=== PATIENT | female | born 1930 | race Caucasian/White ===

== ENCOUNTER → 2017-01-12 | Outpatient (CLI) | payer MEDICARE, OTHER ==
[~2017-01-12] MED LIST: ALBUTEROL20 ml INH; ALL DAY ALLERGY10 M2 PO; ALLEGRA60 M1 PO; ALLERGY10 M2 PO; ALPRAZOLAM0.25 MG PO; ANASTROZOLE1 MG PO; ARIMIDEX1 MG PO; ASPIRIN EC81 M1 PO; ASPIRIN81 M2 PO; ASPIRIN81 MG PO; BETAPACE PO; CARDIZEM CD PO; CARDIZEM CD120 M1 PO; CARDIZEM PO; CARDIZEM60 M1 PO; CARDIZEM60 M2 PO; CARDIZEM60 MG PO; CIPRO PO; COLACE PO; COUMADIN PO; COUMADIN1 MG PO; COUMADIN2.5 MG PO; COUMADIN5 MG PO; COUMADIN7.5 MG PO; DILTIAZEM ER60 MG; DILTIAZEM ER60 MG PO; FENOFIBRATE54 MG PO; GLUCOPHAGE500 M1 PO; GLUCOPHAGE500 MG PO; HYDROCODON-ACE1 EAC9 PO; KEFLEX500 M1 PO; LASIX PO; LASIX20 MG PO; LEVAQUIN250 MG PO; LEVAQUIN750 MG PO; LEVOTHROID100 MC1 PO; LEVOTHYROXINE100 MC1 PO; LEVOTHYROXINE100 MCG PO; LEVOTHYROXINE75 MC1 PO; LEVOTHYROXINE75 MCG PO; LEVOTHYROXINE88 MCG PO; LOPRESSOR PO; LOSARTAN POTASS50 MG PO; METFORMIN HCL500 M1 PO; METFORMIN HCL500 M3 PO; METOPROLOL SUCC50 MG PO; METOPROLOL TAR25 MG PO; METOPROLOL TART25 MG PO; MIRALAX17 G1 PO; NORVASC2.5 MG PO; PANTOPRAZOLE SO20 MG PO; PHENERGAN25 MG PO; PRILOSEC40 MG PO; PROTONIX PO; PROTONIX20 MG PO; SYNTHROID PO; SYNTHROID0.1 MG PO; TESSALON200 MG PO; WARFARIN SODIU2.5 M1 PO; XANAX1 MG PO; ZESTRIL2.5 M1 PO; ZITHROMAX1 G/PKT PO
--- NOTE | ~2017-01-12 | MY8 ---
[facility] A Service of [facility] & [facility] RADIOLOGY TEXT RESULTS PATIENT: CHARY MCLEOD LOCATION: [facility] : 31 UNIT #: [id number] AGE: [address]: Johnny Gandhi MD SEX: F ORDER DR: [id number] [facility] [address] [facility]. [place], [place] [address] [id number] O MR#: [id number] Acc #: [id number] NAME: CHRAY MCLEOD : 1930 SEX: F STUDY DATE/TIME: 01/12/2017 8:15 UNIT: [facility] ROOM: STUDY DESCRIPTION: MY Mammogram Dx Dig Rt Attending Physician: Johnny Gandhi M.D. Referring Physician: Johnny Gandhi M.D. Ordering Physician: Johnny Gandhi M.D. Primary Care Physician: Gurinder Key M.D. MEDICAL IMAGING REPORT This report is preliminary unless electronic signature is present EXAM Right digital diagnostic mammogram INDICATION Right breast pain and palpable lump in the upper outer quadrant. Previous history of left breast cancer post mastectomy. PROCEDURE CC, MLO and true lateral views of the right breast obtained on a digital mammography unit. FDA-approved CAD device utilized. COMPARISON 01/06/2016. FINDINGS Heterogeneous fibroglandular density could obscure a small mass. Stable parenchymal pattern. There is no dominant mass or suspicious calcification. Scattered benign calcifications are stable. Concurrently performed right breast ultrasound in the area of patient's pain shows no sonographic abnormality. IMPRESSION Benign right diagnostic mammogram. Recommend continued clinical followup. Suggest patient continue with yearly screening/followup. Patients over the age of 40 are entered into a reminder system with target due date for the next mammogram. A result letter will also be sent to the patient. BIRADS: 2 Benign finding [facility] A Service of [facility] & [facility] RADIOLOGY TEXT RESULTS PATIENT: CHARY MCLEOD LOCATION: [facility] : 31 UNIT #: [id number] AGE: [address]: Johnny Gandhi MD SEX: F ORDER DR: Dictated by... Kamaljit Church M.D. THIS IS AN ELECTRONICALLY VERIFIED REPORT Kamaljit Church M.D. at 01/13/2017 7:05 AM KEISHA/clair TD: 01/12/2017 12:13 JOB #: [id number] MEDICAL IMAGING REPORT Page 1 of 1 COPY
--- NOTE | ~2017-01-12 | US24 ---
[facility] A Service of [facility] & [facility] RADIOLOGY TEXT RESULTS PATIENT: CHARY MCLEOD LOCATION: [facility] : 31 UNIT #: [id number] AGE: [address]: Johnny Gandhi MD SEX: F ORDER DR: [id number] [facility] [address] [facility] [address] [place], [place] [address] [id number] O MR#: [id number] Acc #: [id number] NAME: CHARY MCLEOD : 1930 SEX: F STUDY DATE/TIME: 01/12/2017 8:52 UNIT: [facility] ROOM: STUDY DESCRIPTION: US Breast Unilateral Attending Physician: Johnny Gandhi M.D. Referring Physician: Johnny Gandhi M.D. Ordering Physician: Johnny Gandhi M.D. Primary Care Physician: Gurinder Key M.D. MEDICAL IMAGING REPORT This report is preliminary unless electronic signature is present EXAM Right breast ultrasound. HISTORY Right breast pain and palpable lump. PROCEDURE Grayscale imaging of the right breast in the area of patient's concern from the 12 to 2 o'clock positions. COMPARISON Concurrently performed diagnostic mammogram. FINDINGS/IMPRESSION Refer to separately dictated diagnostic mammogram for complete work-up, findings, and recommendations. BIRADS: 2 Benign finding. Dictated by... Kamaljit Church M.D. THIS IS AN ELECTRONICALLY VERIFIED REPORT Kamaljit Church M.D. at 01/13/2017 7:05 AM Christel TD: 01/12/2017 12:20 JOB #: [id number] MEDICAL IMAGING REPORT Page 1 of 1 COPY
== END | disposition home or self-care (01) ==
LOC: CMAM 07:52
DX: Z08 Encounter for follow-up examination after completed treatment for malignant neoplasm (principal); Z85.3 Personal history of malignant neoplasm of breast; Z90.12 Acquired absence of left breast and nipple
CPT/HCPCS: 76641; G0206

== ENCOUNTER 2017-02-23 11:27 | Observation (INO) | payer MEDICARE, OTHER ==
--- NOTE | ~2017-02-23 | A ---
[facility] Nutrition Therapy DATE: 02/24/17 Patient: CHARY MCLEOD Physician: JACEK Address: [address] [place] [address] Room/Bed: [address] [place] [address], Zip: [place] [address] Admit Date: 02/23/17 Date of : 31 Height: 5 8 Weight: 142 64.8 NUTRITIONAL ASSESSMENT: REASON: 3 points nutrition screen risk RE: 30# weight loss in 2 yrs 86 yo female admitted for dyspnea, SOA, weak PMH: Pulmonary HTN, valvular heart disease, Afib, chronic anticoagulation, hypothyroidism, breast cancer s/p mastectomy, HTN, HLD, DM, GI bleed, CKD Anthropometrics: Ht: 68" Wt: 64.8 kg BMI: 21.7 Labs: Creat 1.5 Accuchecks 167 GFR 31.5 Meds: Coumadin, levothroid, novolog, lopressor, protonix I/O & Bowel function: 600/2, last BM unknown Skin Integrity: Scars- knees/ abdomen/ hips/ left breast Bruise BUE MAYLIN drains 2 left breasts Edema: none noted Diet: Regular Assessment: Chart reviewed, events noted. 86 yo female admitted for dyspnea and weakness. RD spoke with this pleasant pt at bedside. Pt reports gradual weight loss over the past 11 years, with weight loss of ~30# noted in the past 2 years. Pt reports that she weighed ~142# at a doctor's appt one month ago, which is ~1# difference from her admission weight. Pt attributes weight loss to decrease in appetite due to advanced age. Pt does not eat chocolate or caffiene (d/t heart issues) and does not eat onion. Pt reports early satiety at meal times, and consumed 50% of her breakfast per RD observation of her tray. It is evident that the pt is aware of how high carbohydrate foods affect her blood sugar, as she reports that she will not consume drinks high in sugar due to this. Pt is agreeable to Glucerna supplements. RD also recommended smaller, more frequent meals. Dx: Unplanned weight loss RT change in eating habits due to advanced age AEB pt reported decreased appetite, consuming 50% of meals, early satiety and 30# weight loss over the past 2 years. Intervention: 1. Regular diet 2. Glucerna BID [facility] Nutrition Therapy DATE: 02/24/17 Patient: CHARY MCLEOD Physician: JACEK Address: [address] [place] [address] Room/Bed: [address] [place] [address], Zip: [place] [address] Admit Date: 02/23/17 Date of : 31 Height: 5 8 Weight: 142 64.8 3. 6 small meals Monitoring, Evaluation and Goals: 1. Oral intake; consume greater than 50-75% of meals 2. Improve labsl glucose 3. Weight; prevent unintentional weight loss Recommendations: 1. Continue regular diet due to the pt's decreased appetite, weight loss and advanced age. Pt is aware of high sugar/carb options on the menu, and avoids these items. 2. Glucerna BID for supplemental nutrition. 3. Add 6 small meals to the pt's diet order if she does not consume Glucerna supplements. Pt is at mild nutritional risk. RD will follow hospital course per protocol. Respectfully, RALPH HENSON RD, LD [employer] and Nutrition[facility] Services [facility] cc: client file
--- NOTE | ~2017-02-23 | CO ---
Unit #: [id number] #: [id number] Patient: CHARY MOSQUEDA [id number] [facility]. [place], [place] [address] [id number] MR#: [id number] NAME: CHARY MOSQUEDA ROOM: 330 Age: 86 Sex: F Admission Date: 02/23/2017 : 1930 Attending Physician: Coleen Elizondo M.D. Primary Care Physician: Gurinder Key M.D. Consultation Date: 02/24/2017 CONSULTATION REPORT REASON FOR CONSULTATION Dyspnea. HISTORY OF PRESENT ILLNESS This is an 86-year-old white female, who is known to Dr. Robles, sees in the office. She has a history of having permanent atrial fibrillation, is on Coumadin. She has history of hypothyroidism, hypertension, diabetes. She has severe mitral regurgitation and severe tricuspid regurgitation on her last echo, who came to the emergency room with complaints of worsening shortness of breath with exertion, generalized weakness, two-pillow orthopnea. She says she has occasional dry cough but no fever or chills. Had decreased appetite in the last few weeks but denies any nausea, vomiting, diarrhea, or abdominal pain. She reports she has lost 30 pounds in the last two years. She denies any chest pain, pain in her neck, bilateral jaws, shoulders, arms, or elbows. No palpitations, dizziness, presyncope, or syncope. According to the patient, Dr. Key decreased her dose of Synthroid from 0.88 mg to 75 mcg daily. She attributes to that is about the same time when the symptoms of her worsening dyspnea and orthopnea started. She said she took her new prescription dose of Synthroid for about four days but since her symptoms started worsening she stopped taking it, so she has not been taking any Synthroid for over two weeks. In the emergency room, the patient's blood pressure was 144/82, heart rate was 106, respirations 18, afebrile. Oxygen was 100% on room air. Her chest x-ray did not show anything acute. She had a V/Q which showed a low probability for PE. Her INR is subtherapeutic at 1.4. She is being admitted at [facility] for further evaluation and management. Due to her known valvular heart disease, cardiology is consulted to assist with evaluation and management of her dyspnea and weakness. PAST MEDICAL HISTORY 1. March 2014, a 2D echo shows LV EF of 50% to 55% with the right ventricle moderately dilated, moderate left atrial enlargement and moderate dilatation of the right atrium with severe mitral regurgitation as well as severe tricuspid regurgitation and mild aortic regurgitation. 2. Permanent atrial fibrillation on Coumadin. 3. Chronic kidney disease. 4. Diabetes mellitus type 2. 5. Hypertension. 6. Hyperlipidemia. 7. Hypothyroidism. 8. History of breast cancer, status post mastectomy in remission. 9. History of colon mass, November 2016, removed by Dr. Ruth during a Unit #: [id number] #: [id number] Patient: CHARY MOSQUEDA colonoscopy. According to patient, was told noncancerous. PAST SURGICAL HISTORY 1. Recent polypectomy and removal of a 5 cm mass from her colon, October 2016. 2. Mastectomy. 3. Appendectomy. 4. Cataract surgery. 5. Cholecystectomy. 6. Hysterectomy. 7. Hip surgery. HOME MEDICATIONS 1. Lopressor 50 mg p.o. twice daily. 2. Fenofibrate 54 mg p.o. daily. 3. Glucophage 500 mg p.o. twice daily. 4. Protonix 20 mg p.o. daily. 5. Diltiazem 60 mg p.o. twice daily. 6. Levothyroxine - she is currently taking 75 mcg daily. She had been on 100 mcg daily. 7. Coumadin 2.5 mg on Wednesday through Wednesday and 5 mg on Wednesday and Wednesday. ALLERGIES Meperidine, penicillin, caffeine, codeine, propoxyphene, amiodarone, latex, onions, and chocolate. SOCIAL HISTORY The patient lives in an apartment. She walks with a cane. She continues to drive small trips to the store and shopping. A lifelong history of nonsmoker. No alcohol or illicit drug abuse. FAMILY HISTORY Mother had diabetes, otherwise no significant coronary artery disease. REVIEW OF SYSTEMS See details in HPI. PHYSICAL EXAMINATION GENERAL: On exam, Ms. Mosqueda is an 86-year-old white female in no acute respiratory failure. She is awake, alert, answers most questions appropriately. VITAL SIGNS: Currently blood pressure is 118/57, heart rate 74, respirations 18, temperature 97.5, O2 saturations 100% on 2 L. NECK: Trachea midline. No thyromegaly or lymphadenopathy. Normal carotid upstrokes. No jugular venous distention. HEART: S1, S2. Regular rate and rhythm. A systolic murmur over left sternal border. ABDOMEN: Slightly obese. Soft, nontender. Positive bowel sounds present. EXTREMITIES: Pedal pulses are palpable. Trace pedal edema. DIAGNOSTIC STUDIES LABORATORY: ABG: A pH 7.388, pCO2 of 34.9, pO2 of 84.1, HCO3 of 21, O2 saturations 96.3. Glucose is 105, BUN 17, creatinine 1.5, eGFR 31.5, sodium 138, potassium 3.6, chloride 106, CO2 of 22, calcium 9.2. Total protein 6.8, albumin 3.7, bilirubin total 0.3, AST 16, ALT 11, alkaline phosphatase 81. BNP is 332. Hemoglobin A1c is 5.7. TSH is 3.83. WBC Unit #: [id number] #: [id number] Patient: CARTER MOSQUEDAH 5.5, hemoglobin 12, hematocrit 36.6, platelets 253,000. Urinalysis shows 1+ protein, 1 urobilinogen, otherwise unremarkable. CK-MB is 2.3, troponin less than 0.05. CK-MB 1.6, troponin less than 0.05. IMAGING: Chest x-ray shows cardiomegaly, otherwise no active disease. Ventilation/perfusion lung scan shows low probability for PE. CARDIOVASCULAR: EKG reveals atrial fibrillation with occasional premature ventricular complex and ventricular rate 100 beats per minute. IMPRESSION 1. Worsening dyspnea. 2. History of severe mitral and tricuspid regurgitation found on echo in 2013. 3. Chronic atrial fibrillation. 4. Chronic anticoagulation with Coumadin, supratherapeutic on admission. 5. Hypertension. 6. Hyperlipidemia. 7. Diabetes mellitus type 2. 8. Pulmonary hypertension. 9. Hypothyroidism. 10. History of breast cancer, status post mastectomy. PLAN 1. BNP is 332. On exam, the patient does not appear to be in acute congestive heart failure; however, will trial a dose of Lasix 20 mg p.o. and see if it improves her symptoms. Will obtain another 2D echo to re-evaluate her left ventricular function and valves. 2. On exam, there are no signs or symptoms of unstable angina, acute congestive heart failure. Cardiac enzymes so far as negative. 3. The patient's TSH is in the normal range. The patient has been restarted back on her Synthroid. According to patient, Dr. Key, February 02 around that time, decreased her dose of Synthroid and she said she took it about three or four days and she just felt really lightheaded and strange feeling and overall not feeling good and weakness and shortness of breath. Overall, patient said she has not felt good since that time. She has been calling Dr. Key but he told her to report to the hospital for medical management. Will re-assess her valvular heart disease by obtaining another 2D echo on this admission. She has not had one since 2013. 4. Increasing the dose of Coumadin because the patient is subtherapeutic. Her CBC is stable. 5. Any further recommendations pending per Dr. Marie. Thank you very much for allowing us to assist in the care. Dictated by... Dominguez LuevanoPMichaRMichaNMicha for Moody Hnuter/clementine TD: 02/24/2017 14:28 JOB #: [id number] Unit #: [id number] #: [id number] Patient: CHARY MOSQUEDA CONSULTATION REPORT Page 1 of 1 X Fiona Medina APRN CONSULTATION REPORT
--- NOTE | ~2017-02-23 | CR72 ---
[facility] A Service of [facility] & [facility] RADIOLOGY TEXT RESULTS PATIENT: CHARY MCLEOD LOCATION: [facility] : 31 UNIT #: [id number] AGE: [address]: Rochelle Pena MD SEX: F ORDER DR: [id number] [facility] [address] [place], [place] [address] [id number] MR#: [id number] Acc #: [id number] NAME: CHARY CMLEOD : 1930 SEX: F STUDY DATE/TIME: 02/23/2017 12:39 UNIT: [facility] ROOM: STUDY DESCRIPTION: CR Chest Single View Portable Attending Physician: Rochelle Pena M.D. Ordering Physician: Ed Doctor [id number] [facility] Primary Care Physician: Gurinder Key M.D. MEDICAL IMAGING REPORT This report is preliminary unless electronic signature is present EXAM Portable chest, 02/23 INDICATION Weakness, shortness of air. History of breast cancer. FINDINGS AP portable chest is compared with 05/27/2015. The heart is enlarged. Granulomatous calcifications are noted in the left hilum and AP window. There are atherosclerotic calcifications in the aorta. The lungs are clear. No pneumothorax is seen. IMPRESSION Cardiomegaly. No active disease. Dictated by... Wesly Chang Jr., M.D. THIS IS AN ELECTRONICALLY VERIFIED REPORT Wesly Chang Jr., M.D. at 02/23/2017 4:48 PM ALEXI/marko TD: 02/23/2017 14:20 JOB #: [id number] MEDICAL IMAGING REPORT Page 1 of 1 COPY
--- NOTE | ~2017-02-23 | HP ---
Unit #: [id number] #: [id number] Patient: CHARY MCLEOD [id number] [address] [place], [place] [address] [id number] MR#: [id number] NAME: CHARY MCLEOD ROOM: Age: 86 Sex: F Admission Date: 02/23/2017 : 1930 Attending Physician: Rochelle Pena M.D. Primary Care Physician: Gurinder Key M.D. HISTORY AND PHYSICAL CHIEF COMPLAINT Short of air, weak. HISTORY OF PRESENT ILLNESS The patient is an 86-year-old female with past medical history of valvular heart disease, atrial fibrillation, chronic anticoagulation, hypertension, hyperlipidemia, diabetes, pulmonary hypertension, hypothyroidism, breast cancer, who presented to the emergency department for evaluation of the above. The patient states that she was in her usual state of health until around 02/03/2017. She states that she saw her primary care physician on that day for general weakness. At that time, levothyroxine was decreased from 88 to 75 mcg daily. She thinks that since that time she has had increasing generalized weakness and shortness of breath. She also reports dyspnea on exertion when walking across the room. She has had two-pillow orthopnea that she states is not a new problem. She has had paroxysmal nocturnal dyspnea. She denies any fever. She states that she has had intermittent cough for the past six months. She denies any chest pain. She states that she has had decreased appetite. She denies any vomiting or diarrhea. She has lost about 30 pounds over the past two years. In the emergency department, initial pulse 106 and blood pressure 144/82. Oxygen was 100% on room air. Chest x-ray showed nothing acute. VQ scan was low probability for PE. INR is subtherapeutic at 1.4. She is being admitted to [facility] for evaluation and further treatment. PAST MEDICAL HISTORY 1. Admission to [facility] 10/24/2016 for GI bleed and Coumadin toxicity. 2. Atrial fibrillation on chronic anticoagulation with Coumadin followed by Dr. Robles. 3. History of nonsustained ventricular tachycardia. 4. Chronic kidney disease. 5. Diabetes. 6. Hypertension. 7. Breast cancer, status post mastectomy. 8. Valvular heart disease. The patient had an echocardiogram 03/25/2014 that showed an ejection fraction of 50% to 55%. The right ventricle was moderately dilated. The right ventricular systolic function was mildly reduced. Moderate left atrial enlargement and moderate dilatation of the right atrium were also noted. There was severe mitral regurgitation as well as severe tricuspid regurgitation, mild Unit #: [id number] #: [id number] Patient: CHARY MCLEOD aortic regurgitation was noted. PAST SURGICAL HISTORY 1. Mastectomy. 2. Appendectomy. 3. Cataract surgery. 4. Cholecystectomy. 5. Hysterectomy. 6. Hip surgery. ALLERGIES Include: 1. Chocolate. 2. Meperidine. 3. Penicillin. 4. Caffeine. 5. Codeine. 6. Propoxyphene. 7. Amiodarone. 8. Latex. 9. Onion. HOME MEDICATIONS 1. Lopressor 50 mg b.i.d. 2. Fenofibrate 54 mg daily. 3. Glucophage 500 mg b.i.d. 4. Protonix 20 mg daily. 5. Diltiazem 60 mg b.i.d. 6. Levothyroxine is listed as 100 mcg daily but the patient states that she is currently taking 75 mcg daily. 7. Coumadin 2.5 mg Wednesday through Wednesday. 8. Coumadin 5 mg Wednesday and Wednesday. SOCIAL HISTORY The patient lives alone. She walks with a cane. There is no tobacco or alcohol use. FAMILY HISTORY Notable for her mother having diabetes. REVIEW OF SYSTEMS A complete review of systems is negative except as indicated in the HPI. PHYSICAL EXAMINATION VITAL SIGNS: Temperature 98.3, pulse 106, respirations 16, blood pressure 144/82, oxygen saturation 100% on room air. GENERAL: The patient is a very pleasant female who is awake and alert in no acute distress. HEENT: Head is atraumatic. Mucous membranes are moist. NECK: Supple. Trachea is midline. LUNGS: Relatively clear to auscultation bilaterally with no increased work of breathing. HEART: Irregular. She does have a 2/6 to 3/6 systolic ejection murmur. ABDOMEN: Soft, nontender. Bowel sounds present in all four quadrants. EXTREMITIES: Nontender with no pedal edema. NEUROLOGIC: Patient is awake and alert. She follows commands. PSYCHIATRIC: Mood and affect are normal. Patient is cooperative. SKIN OF EXAMINED AREAS: Warm and dry. Unit #: [id number] #: [id number] Patient: CHARY MCLEOD DIAGNOSTIC STUDIES LABORATORY: Troponin less than 0.05. Complete blood count is completely normal. INR 1.5. Comprehensive metabolic panel notable for BUN 17, creatinine 1.5. Urinalysis notable for 1+ protein. Arterial blood gas shows pH of 7.388, pCO2 of 34.9, pO2 of 84.1. IMAGING: Chest x-ray shows nothing acute. VQ scan showed low probability for PE. CARDIOVASCULAR: EKG shows atrial fibrillation with premature ventricular aberrantly conducted complex at a rate of 100 beats per minute. ASSESSMENT The patient is an 86-year-old female with: 1. Dyspnea. I suspect that this could be related to progression of valvular heart disease. The patient did have, as noted on echocardiogram in 2013, severe mitral and tricuspid regurgitation. 2. Atrial fibrillation, currently with a heart rate around 100. 3. Chronic anticoagulation with Coumadin. INR is subtherapeutic today at 1.5. 4. Hypertension. 5. Hyperlipidemia. 6. Diabetes. 7. Pulmonary hypertension. 8. Hypothyroidism. 9. Breast cancer, status post mastectomy. PLAN 1. Admit to intermediate level for observation. 2. Healthy-heart diet if passes bedside swallow. 3. Supplemental oxygen. 4. Cardiac enzymes q.6 h. times 2 more, call if abnormal. 5. Consult Dr. Robles regarding dyspnea on exertion and concern for possible worsening valvular heart disease. 6. Hemoglobin A1c. 7. Low-dose sliding scale insulin with Accu-Cheks. 8. TSH. 9. Change Coumadin. 10. PT/OT to evaluate and treat. 11. Additional workup and consultants based on above. Dictated by Moody Plata/lexa TD: 02/23/2017 20:19 JOB #: [id number] Unit #: [id number] #: [id number] Patient: CHARY MCLEOD HISTORY AND PHYSICAL Page 1 of 1 X Kassi Casillas MD X HISTORY AND PHYSICAL
--- NOTE | ~2017-02-23 | NM69 ---
[facility] A Service of [facility] & [facility] RADIOLOGY TEXT RESULTS PATIENT: CHARY MCLEOD LOCATION: [facility] 330- : 31 UNIT #: [id number] AGE: [address]: Coleen Elizondo MD SEX: F ORDER DR: [id number] [facility] [address] [place], [place] [address] [id number] I MR#: [id number] Acc #: [id number] NAME: CHARY MCLEOD : 1930 SEX: F STUDY DATE/TIME: 02/23/2017 15:46 UNIT: [address] ROOM: [facility] STUDY DESCRIPTION: NM Pulm Vent and Perf Attending Physician: Kassi Casillas M.D. Ordering Physician: Rochelle Pena M.D. Primary Care Physician: Gurinder Key M.D. MEDICAL IMAGING REPORT This report is preliminary unless electronic signature is present EXAM Ventilation perfusion radionuclide bone scan 02/23/2017 HISTORY Dyspnea. Cough, cannot stop. Dyspnea and fatigue began 6 months ago. Prior right breast cancer. FINDINGS Following inhalation of 34.3 mCi technetium 99m aerosolized DTPA and intravenous administration 5.9 mCi technetium 99m MAA, multiple views of the thorax were obtained. Comparison to chest radiograph from same date. Heterogeneous distribution of radiotracer on perfusion and ventilation images. Heterogeneous distribution of radiotracer on both the perfusion and ventilation images. There are matching perfusion and ventilation defects. No suspicious perfusion ventilation mismatches. Accompanying chest x-ray shows no clear indication of acute pulmonary disease. Study is felt to be low probability for pulmonary embolus. IMPRESSION Low probability for pulmonary embolus. Please see discussion in body of report above. If there is ongoing concern for pulmonary thromboembolic disease, consider CT pulmonary angiography for further assessment if patient is a candidate. Dictated by... Theo Bansal M.D. THIS IS AN ELECTRONICALLY VERIFIED REPORT Theo Bansal M.D. at 02/25/2017 9:03 AM SAROJ/janae [facility] A Service of [facility] & [facility] RADIOLOGY TEXT RESULTS PATIENT: CHARY MCLEOD LOCATION: [facility] 330-01 : 31 UNIT #: [id number] AGE: [address]: Coleen Elizondo MD SEX: F ORDER DR: TD: 02/23/2017 19:20 JOB #: [id number] MEDICAL IMAGING REPORT Page 1 of 1 COPY
--- NOTE | ~2017-02-23 | EKG ---
PATIENT: CHARY MCLEOD UNIT #: [id number] Ventricular Rate: 100 BPM Atrial Rate: 394 BPM QRS Duration: 64 ms Q-T Interval: 368 ms QTC Calculation(Bezet): 474 ms Calculated R [place]: 29 degrees Calculated T [place]: 47 degrees Diagnosis Line: Atrial fibrillation with premature ventricular or Diagnosis Line: aberrantly conducted complexes Diagnosis Line: Abnormal ECG Diagnosis Line: When compared with ECG of 24-OCT-2016 13:31, Diagnosis Line: Vent. rate has increased BY 57 BPM Diagnosis Line: QT has lengthened Diagnosis Line: Confirmed by WOODY BREEN MD ([id number]) on 02/24/2017 Diagnosis Line: 10:02:16 AM INTERPRETING MD: JAMSHID MUÑOZ
--- NOTE | ~2017-02-23 | DS ---
Unit #: [id number] #: [id number] Patient: CHARY MCLEOD [id number] [address] [address] [id number] I MR#: [id number] NAME: CHARY MCLEOD ROOM: 330 Age: 86 Sex: F Admission Date: 02/23/2017 : 1930 Discharge Date: Attending Physician: Coleen Elizondo M.D. Primary Care Physician: Gurinder Key M.D. DISCHARGE SUMMARY DISCHARGE DIAGNOSES 1. Dyspnea on exertion secondary to acute systolic heart failure from progression of valvular heart disease. 2. Atrial fibrillation, permanent. 3. Subtherapeutic INR. 4. Hypertension. 5. Hyperlipidemia. 6. Severe mitral regurgitation. 7. Severe tricuspid regurgitation. 8. Hypothyroidism. 9. Diabetes mellitus type 2. 10. Pulmonary hypertension. 11. Breast cancer, status post mastectomy. 12. History of nonsustained ventricular tachycardia. 13. Chronic kidney disease stage 3. CONSULTATION Dr. Marie. PROCEDURES None. LAB DATA INR of 1.6. V/Q scan shows low probability. Sodium 137, potassium 4.4, creatinine 1.6, BNP 332. Hemoglobin A1c 5.6. ABG - pH 7.38, carbon dioxide 34, oxygen 84. Echocardiogram shows ejection fraction 40% to 45%, moderately dilated left atrium. Inferior wall hypokinesis cannot be ruled out. Moderate to severe enlarged right atrial size. Mild to moderate high degree vegetation, severe mitral regurgitation, severe tricuspid regurgitation. Right ventricular systolic pressure is 38. Mild to moderate pulmonary valve regurgitation. ALLERGIES Penicillin, caffeine, codeine, propoxyphene, amiodarone, meperidine, latex. DISCHARGE MEDICATIONS 1. Coumadin 5 mg p.o. daily on 02/25/2017 an 02/26/17. After that, Unit #: [id number] #: [id number] Patient: CHARY MCLEOD Coumadin 2.5 mg Wednesday through Wednesday and Coumadin 5 mg Wednesday and Wednesday. 2. Cardizem sustained release 60 mg p.o. b.i.d. 3. Lopressor tartrate 25 mg p.o. b.i.d. 4. Lasix 20 p.o. daily. 5. Fenofibrate 54 mg p.o. daily. 6. Protonix 20 daily. 7. Levothyroxine 100 mcg p.o. daily. HOSPITALIZATION COURSE 86-year-old admitted because of shortness of breath. Dyspnea on exertion secondary to acute systolic heart failure from severe valvular heart disease: Patient seen by cardiology. Echocardiogram has been done. Patient received Lasix. Patient will be discharged on p.o. Lasix. Patient is not a candidate for valvular surgery, according to cardiology. Severe mitral regurgitation and severe tricuspid regurgitation with ejection fraction 40% to 45% and chronic kidney disease and age of 86: According to cardiology, the patient is not a candidate for valvular surgery. Chronic kidney disease, stage 3, stable: No YARELI or ARB secondary to chronic kidney disease. Diabetes mellitus type 2, well controlled. The patient will be discharged home. Follow with family physician in one week time. The patient will have PT/INR checked on 03/01/2017. Follow with Dr. Robles with results. Patient will have home health for INR checkup. Follow with Dr. Robles on April 27 at 3 p.m. Dictated by... Moody Coronado/lissette TD: 02/25/2017 11:19 JOB #: [id number] DISCHARGE SUMMARY Page 1 of 1 X Coleen Elizondo MD DISCHARGE SUMMARY
[~2017-02-23 11:27] MED LIST changes: -ARIMIDEX1 MG PO; -COUMADIN2.5 MG PO; -GLUCOPHAGE500 MG PO; -LASIX PO; -LEVOTHYROXINE75 MCG PO; -METOPROLOL TAR25 MG PO; -METOPROLOL TART25 MG PO; -WARFARIN SODIU2.5 M1 PO; -XANAX1 MG PO
[2017-02-23 12:13] LABS: POC - CKMB 2.3 ng/mL (0.0-7.9); POC - TROPONIN <0.05 ng/mL (<=0.05)
[2017-02-23 12:47] LABS: BASOPHIL# 0.1 X10e3 (0-0.3); BASOPHIL% 1.3 % (0-2.5); EOSINOPHIL# 0.1 X10e3 (0-0.7); EOSINOPHIL% 2.7 % (0.0-7.0); HEMATOCRIT 36.6 % (35.0-45.0); LYMPHOCYTE# 1.2 X10e3 (1.0-3.5); LYMPHOCYTE% 21.1 % (17.0-45.0); MEAN CORPUSCULAR HEMOGLOBIN 30.4 PG (28-34); MEAN CORPUSCULAR HGB CONC 32.7 g/dL (30-36); MEAN PLATELET VOLUME 9.9 FL (6.5-11.5); MONOCYTE# 0.6 X10e3 (0-1.0); MONOCYTE% 10.9 % (3.0-12.0); NEUTROPHIL# 3.5 X10e3 (1.5-7.1); PLATELET COUNT 253 X10e3 (140-420); RED BLOOD COUNT 3.94 X10e (3.90-5.30); RED CELL DISTRIBUTION WIDTH 13.3 % (11.0-15.5); WHITE BLOOD COUNT 5.5 X10e3 (4.0-10.5)
[2017-02-23 12:50] LABS: DIFF IND NO
[2017-02-23 13:09] LABS: INR 1.5; PARTIAL THROMBOPLASTIN TIME 31.3 SECONDS (23.5-31.3); PROTHROMBIN TIME (PATIENT) 15.5 SECONDS (9.6-11.5)
[2017-02-23 13:18] LABS: ALBUMIN SERUM 3.7 g/dL (3.5-5.0); BILIRUBIN, DIRECT 0.1 mg/dL (0.0-0.2); BILIRUBIN,INDIRECT 0.2 mg/dL (0.0-0.9); BILIRUBIN,TOTAL 0.3 mg/dL (0.2-2.0); BUN/CREATININE RATIO 11.33; CALCIUM SERUM 9.2 mg/dL (8.4-10.2); CREATININE SERUM 1.5 mg/dL (0.6-1.4); GLOM FILT RATE Estimated 31.5 mL/min (>60); POTASSIUM 3.6 mmol/L (3.5-5.1); PROTEIN TOTAL SERUM 6.8 g/dL (6.0-8.3)
[2017-02-23 14:03] LABS: POC - CKMB 1.6 ng/mL (0.0-7.9); POC - TROPONIN <0.05 ng/mL (<=0.05)
[2017-02-23 14:06] LABS: URINE SOURCE CLEAN CATCH
[2017-02-23 14:23] LABS: URINE APPEARANCE CLEAR; URINE BILIRUBIN NEG (NEG); URINE BLOOD TRACE (NEG); URINE COLOR YELLOW; URINE GLUCOSE NEG (NEG); URINE KETONE NEG (NEG); URINE LEUKOCYTE ESTERASE NEG (NEG); URINE NITRATE NEG (NEG); URINE PROTEIN 1+ (NEG); URINE SPECIFIC GRAVITY 1.015 (1.003-1.035)
[2017-02-23 14:25] LABS: URBCS1 AUWI 0-2 /[HPF] (0-2); URINE BACTERIA AUWI NEG (NEGATIVE); URINE SQUAMOUS EPITHELIAL CELL FEW /[HPF]
[2017-02-23 15:07] LABS: ARTERIAL BLD GAS O2 SATURATION 96.3 % (90.0-100.0); ARTERIAL BLOOD GAS ART SITE RIGHT RADIAL; ARTERIAL BLOOD GAS CARBOXY HB 0.4 %sat (0.0-9.0); ARTERIAL BLOOD GAS MET HB 0.6 %sat (0.0-2.0); ARTERIAL BLOOD GAS PCO2 34.9 mmHg (35.0-45.0); ARTERIAL BLOOD GAS PO2 84.1 mmHg (80.0-100); ARTERIAL BLOOD GAS pH 7.388 (7.350-7.450); ARTERIAL DRAW? YES
[2017-02-23] MEDS ORDERED: LOPRESSOR PO (17:16)
[2017-02-23] MEDS ORDERED: FENOFIBRATE54 MG PO (17:18)
[2017-02-23] MEDS ORDERED: GLUCOPHAGE500 MG PO (17:18)
[2017-02-23] MEDS ORDERED: DILTIAZEM ER60 MG PO (17:19)
[2017-02-23] MEDS ORDERED: PROTONIX20 MG PO (17:19)
[2017-02-23] MEDS ORDERED: LEVOTHYROXINE100 MCG PO (17:20)
[2017-02-23] MEDS ORDERED: COUMADIN2.5 MG PO (17:20)
[2017-02-23] MEDS ORDERED: COUMADIN5 MG PO (17:21)
[2017-02-25 06:05] LABS: BUN/CREATININE RATIO 16.87; CREATININE SERUM 1.6 mg/dL (0.6-1.4); GLOM FILT RATE Estimated 29.1 mL/min (>60); POTASSIUM 4.4 mmol/L (3.5-5.1)
[2017-02-25 09:16] LABS: INR 1.6; PROTHROMBIN TIME (PATIENT) 17.4 SECONDS (9.6-11.5)
[2017-02-25] MEDS ORDERED: METOPROLOL TAR25 MG PO (10:58)
[2017-02-25] MEDS ORDERED: LASIX20 MG PO (10:58)
[2017-02-25] MEDS ORDERED: PANTOPRAZOLE SO20 MG PO (10:59)
[2017-02-25] MEDS ORDERED: LEVOTHYROXINE75 MCG PO (11:02)
[2017-02-25] MEDS ORDERED: COUMADIN5 MG PO (11:08)
[2017-02-25] MEDS ORDERED: COUMADIN2.5 MG PO (11:09)
== END 2017-02-25 12:26 | disposition home or self-care (01) ==
LOC: CED 11:27 → CEDOF 19:20 → C3A PCU 19:20
PROVIDERS: Emergency Medicine; Internal Medicine Cardiovascular Disease
DX: I13.0 Hypertensive heart and chronic kidney disease with heart failure and stage 1 through stage 4 chronic kidney disease, or unspecified chronic kidney disease (principal); I50.21 Acute systolic (congestive) heart failure; E11.22 Type 2 diabetes mellitus with diabetic chronic kidney disease; N18.3 Chronic kidney disease, stage 3 (moderate); I48.2 Chronic atrial fibrillation; Z79.01 Long term (current) use of anticoagulants; Z79.84 Long term (current) use of oral hypoglycemic drugs; I27.2 Other secondary pulmonary hypertension; I08.1 Rheumatic disorders of both mitral and tricuspid valves; E03.9 Hypothyroidism, unspecified; R79.1 Abnormal coagulation profile; T45.515A Adverse effect of anticoagulants, initial encounter; Z88.0 Allergy status to penicillin; Z88.5 Allergy status to narcotic agent; Z91.040 Latex allergy status; Z85.3 Personal history of malignant neoplasm of breast; Z90.10 Acquired absence of unspecified breast and nipple
CPT/HCPCS: 36415; 36600; 71010; 78582; 80048; 80076; 81003; 82553; 82803; 82947; 83036; 83880; 84443; 84484; 85025; 85610; 85730; 93005; 93306; 94760; 97116; 97163; 97165; 97530; 99285; A9540; A9567; G0378; G8978-GP; G8979-GP; G8987-GO; G8988-GO; G8989-GO; J1815

== ENCOUNTER 2017-03-30 01:39 | Observation (INO) | payer MEDICARE, OTHER ==
--- NOTE | ~2017-03-30 | EKG ---
PATIENT: CHARY MCLEOD UNIT #: [id number] Ventricular Rate: 91 BPM Atrial Rate: 111 BPM QRS Duration: 74 ms Q-T Interval: 386 ms QTC Calculation(Bezet): 474 ms Calculated R [place]: 8 degrees Calculated T [place]: 15 degrees Diagnosis Line: Atrial fibrillation Diagnosis Line: Abnormal ECG Diagnosis Line: When compared with ECG of 30-MAR-2017 01:49, Diagnosis Line: No significant change was found Diagnosis Line: Confirmed by QUAN HANSEN MD ([id number]) on 03/31/2017 Diagnosis Line: 7:44:16 AM INTERPRETING MD: JADE MUÑOZ
--- NOTE | ~2017-03-30 | EKG ---
PATIENT: CHARY MCLEOD UNIT #: [id number] Ventricular Rate: 102 BPM Atrial Rate: 129 BPM QRS Duration: 72 ms Q-T Interval: 370 ms QTC Calculation(Bezet): 482 ms Calculated R [place]: 4 degrees Calculated T [place]: 21 degrees Diagnosis Line: Atrial fibrillation with rapid ventricular Diagnosis Line: response Diagnosis Line: Abnormal ECG Diagnosis Line: When compared with ECG of 23-FEB-2017 12:22, Diagnosis Line: No significant change was found Diagnosis Line: Confirmed by DIANA WALTERS MD ([id number]) on Diagnosis Line: 03/30/2017 9:16:32 PM INTERPRETING MD: SHEYLA
--- NOTE | ~2017-03-30 | CR72 ---
[facility] A Service of [facility] & [facility] RADIOLOGY TEXT RESULTS PATIENT: CHARY MCLEOD LOCATION: [facility] [id number] : 31 UNIT #: [id number] AGE: [address]: STONEY GARCIA MD SEX: F ORDER DR: [id number] [facility] [address] [place], [place] [address] [id number] I MR#: [id number] Acc #: [id number] NAME: CHARY MCLEOD : 1930 SEX: F STUDY DATE/TIME: 03/30/2017 3:00 UNIT: [facility] ROOM: [address] STUDY DESCRIPTION: CR Chest Single View Portable Attending Physician: Stoney Garcia M.D. Ordering Physician: [facility] Primary Care Physician: Gurinder Key M.D. MEDICAL IMAGING REPORT This report is preliminary unless electronic signature is present EXAM Portable chest COMPARISON STUDY: 02/23/17 INDICTIONS Chest pain starting tonight with shortness of air. FINDINGS A portable view of the chest was obtained. The heart size and vascularity are normal and the lungs are clear. The bones are unremarkable. IMPRESSION No active disease Dictated by... Chandu Hollis M.D. THIS IS AN ELECTRONICALLY VERIFIED REPORT Chandu Hollis M.D. at 03/30/2017 1:21 PM ALBINO/joseline TD: 03/30/2017 10:23 JOB #: [id number] MEDICAL IMAGING REPORT Page 1 of 1 COPY
--- NOTE | ~2017-03-30 | CO ---
Unit #: [id number] #: [id number] Patient: CHARY MCLEOD [id number] [address] [place], [place] [address] [id number] I MR#: [id number] NAME: CHARY MCLEOD ROOM: 561 Age: 86 Sex: F Admission Date: 03/30/2017 : 1930 Attending Physician: Crys Desai M.D. Primary Care Physician: Gurinder Key M.D. Consultation Date: 03/30/2017 CONSULTATION REPORT REASON FOR CONSULT Acute on chronic renal failure. Thank you very much for this consultation. HISTORY OF PRESENT ILLNESS The patient is an 86-year-old white female, who has a history of CKD stage 3, followed by Dr. Sams. Her baseline creatinine usually resides in the mid to upper 1s. She presented with chest pain, which has been intermittent for the last couple of days. It is midsternal and radiates slightly to the left side. Occasional shortness of breath and some palpitations. No nausea or vomiting. No diarrhea. No hematuria or dysuria. No NSAID use. No other complaints at the current time. Her CKD has been felt to be due to diabetes and hypertension. In addition, she has a history of atrial fibrillation, on anticoagulation; breast cancer; hypothyroidism; anxiety; GERD; CHF. PAST SURGICAL HISTORY Appendectomy, cataract surgery, gallbladder, hysterectomy, left hip replacement, right hip replacement, and left mastectomy for breast cancer. HOME MEDICATIONS Fenofibrate, Protonix, diltiazem ER, Coumadin, metoprolol, Lasix, levothyroxine. ALLERGIES Penicillin, caffeine, codeine, propoxyphene, amiodarone, meperidine, and latex. FAMILY HISTORY Noncontributory. SOCIAL HISTORY Denies any tobacco, alcohol, or illicits. REVIEW OF SYSTEMS 12-system review of systems is negative except as per HPI. PHYSICAL EXAMINATION VITAL SIGNS: Blood pressure is 142/84, heart rate 89, respirations 16, T-max 97.8. GENERAL: She is alert, oriented, in no acute distress. HEENT: Head is normocephalic, atraumatic. ENT; pupils equally round and reactive to light. Oropharynx is clear. Unit #: [id number] #: [id number] Patient: CHARY MCLEOD NECK: Supple. No JVD. LUNGS: Clear to auscultation bilaterally with no wheezes, rhonchi, or crackles. HEART: Regular rate and rhythm. No murmurs, gallops, rubs. ABDOMEN: Soft, nontender, nondistended. Positive bowel sounds. EXTREMITIES: She has no edema. DIAGNOSTIC STUDIES LABORATORY RESULTS: Sodium 138, potassium 4.1, chloride 106, bicarb 23, BUN 34, creatinine 2.2, glucose 82, calcium 9, INR 2.8. White count 6.1, hemoglobin 10.9, platelets 189. Urinalysis showed trace protein. IMAGING STUDIES: Chest x-ray showed no active disease. Her last 2D echo in 02/2017 showed mildly reduced left ventricular systolic function with EF of 40% to 45% with severe mitral regurgitation and tricuspid regurgitation. IMPRESSION 1. Acute kidney injury. This is mild and likely prerenal. 2. Chronic kidney disease, stage 3. Baseline creatinine in the mid 1s, chronic kidney disease felt to be secondary to hypertension and diabetes. 3. Chest pain. 4. Anemia. 5. Hypertension. 6. Diabetes. 7. History of breast cancer. PLAN We will proceed with gentle IV fluids. Hold Lasix. Check urine lytes. Consider ultrasound tomorrow if no improvement in renal function. Continue to avoid nephrotoxins and dose medications for her reduced GFR. Thank you very much for this consultation. We will follow. Dictated by... Rojelio Castano M.D. DL/amanda TD: 03/31/2017 07:18 JOB #: [id number] CONSULTATION REPORT Page 1 of 1 X Rojelio Castano MD X CONSULTATION REPORT
--- NOTE | ~2017-03-30 | CO ---
Unit #: [id number] #: [id number] Patient: CHARY MCLEOD [id number] [address] [place], [place] [address] [id number] I MR#: [id number] NAME: CHARY MCLEOD ROOM: 561 Age: 86 Sex: F Admission Date: 03/30/2017 : 1930 Attending Physician: Crys Desai M.D. Primary Care Physician: Gurinder Key M.D. Consultation Date: 03/30/2017 CONSULTATION REPORT REASON FOR CONSULTATION Chest pain. HISTORY OF PRESENT ILLNESS This is an 86-year-old white female, who is known to Dr. Robles, who has a history of hypertension, hyperlipidemia, and chronic systolic heart failure. She is known to have permanent atrial fibrillation, which she is on anticoagulation with Coumadin. She was recently discharged from this facility on 02/26/2016, where she was admitted with acute on chronic systolic heart failure. The patient states she has been doing well at home until the night prior to her admission when she developed left anterior chest pain at the mid axillary line that is nonradiating to the neck, arm, or jaw. She describes the pain as sharp and constant. There is no alleviating or aggravating factors. She is slightly dyspneic with the chest pain, but no dizziness, diaphoresis, or palpitations. She reports no nausea, vomiting, or diarrhea. Because of her concern about chest pain, she came to the emergency room for evaluation. In the emergency room, troponin is negative x2 sets. Her EKG shows no acute ischemic changes. Creatinine was elevated at 2.2. The patient says that she has been quite upset about the recent of her baby brother, who suddenly last week. PAST MEDICAL HISTORY 1. 2D echocardiogram on 02/24/2017 showed an ejection fraction equal to 40% to 45% with mildly dilated left atrium. Moderately to severely dilated right atrium. Gqqi-um-vzofpbjn aortic regurgitation, severe mitral regurgitation, severe tricuspid regurgitation, and right ventricular systolic pressure of 38 mmHg. Liib-ea-pxavkbqk pulmonic valvular regurgitation. 2. Hypertension. 3. Hyperlipidemia. 4. Permanent atrial fibrillation, on anticoagulation with Coumadin. 5. Chronic systolic heart failure. 6. Colon mass, status post polypectomy 11/2016. 7. Chronic kidney disease. 8. Hypothyroidism. 9. Breast cancer, status post mastectomy. 10. Nonsmoker. FAMILY HISTORY Negative for coronary artery disease. ALLERGIES Penicillin, caffeine, codeine, propoxyphene, amiodarone, Demerol, and Unit #: [id number] #: [id number] Patient: CHARY MCLEOD. HOME MEDICATIONS Levothyroxine 75 mcg daily; Xanax 1 mg q.h.s.; Glucophage 500 mg daily; anastrozole 1 mg daily; Warfarin 2.5 mg daily Wednesday through , 5 mg Wednesday, Wednesday, and Wednesday; metoprolol tartrate 25 mg b.i.d., furosemide 20 mg daily, fenofibrate 54 mg daily. REVIEW OF SYSTEMS CONSTITUTIONAL: Negative for fever or chills. Has no weight gain or weight loss. No weakness or fatigue. HEENT: No headache. No hearing or vision changes or difficulty with swallowing. No dizziness. CARDIOVASCULAR: Has chest pain as described in the HPI. Denies palpitations. No paroxysmal nocturnal dyspnea or orthopnea. No syncope or near syncope. RESPIRATORY: Has slight dyspnea that accompanies chest pain. No cough or hemoptysis. GASTROINTESTINAL: No abdominal pain, nausea, or vomiting. No constipation. No melena. EXTREMITIES: Negative for lower extremity edema. PHYSICAL EXAMINATION VITAL SIGNS: Blood pressure is 153/96, heart rate 90, temperature 98.0. GENERAL: This is a well-developed 86-year-old elderly white female, who is in no acute distress. NEUROLOGIC: She is awake, alert, and oriented. There are no focal weaknesses. NECK: Trachea is midline. No thyromegaly or lymphadenopathy. No jugular venous distention. HEART: S1, S2 with soft systolic murmur heard best at the apex. No rubs or clicks. Irregularly irregular rhythm. LUNGS: Clear without rales, rhonchi, or wheeze. ABDOMEN: Soft and nontender with bowel sounds are present. EXTREMITIES: Without leg edema. SKIN: Warm and dry. DIAGNOSTIC STUDIES LABORATORY RESULTS: Sodium 138, potassium 4.1, BUN 34, creatinine 2.2. CK-MB 2.9. Troponin less than 0.05 x2. TSH 2.75. Protime 31.1. INR 2.8. White count 6.1, hemoglobin 10.3, hematocrit 33.1, platelet count is 189. IMAGING STUDIES: Chest x-ray shows no active disease. CARDIOVASCULAR STUDIES: EKG shows atrial fibrillation with a rate of 102 beats per minute, but no acute ischemic changes. There is poor R-wave progression. IMPRESSION 1. Atypical chest pain. 2. Rule out broken heart syndrome. 3. Mild left ventricular systolic dysfunction with ejection fraction of 40% to 45%. 4. Chronic systolic heart failure. 5. Left atrial enlargement secondary to permanent atrial fibrillation and mitral regurgitation. 6. Severe mitral regurgitation, severe tricuspid regurgitation, and Unit #: [id number] #: [id number] Patient: CHARY MCLEOD moderate aortic regurgitation. 7. Colon mass. 8. Status post left mastectomy for breast cancer. 9. Hypertension. 10. Hyperlipidemia. PLAN 1. Cardiology was consulted for evaluation of chest pain. The patient's chest pain is atypical for ischemic heart disease. We will check EKG, cardiac enzymes, and limited echo to evaluate LV contractile pattern. 2. If the enzymes are normal, the patient can go home in a.m. 3. The patient will most likely have a broken heart syndrome because of recent of her brother who suddenly. If echo is normal, the patient can travel to [place] on for the . 4. We will follow the patient with you. Thank you for allowing us to assist in this patient's care. Dictated by... Juan Carlos Dumont A.P.R.N. for Moody Gale/amanda TD: 04/01/2017 07:01 JOB #: [id number] CONSULTATION REPORT Page 1 of 1 X Juan Carlos Dumont APRN X CONSULTATION REPORT
--- NOTE | ~2017-03-30 | HP ---
Unit #: [id number] #: [id number] Patient: CHARY MCLEOD [id number] [address] [address] [id number] MR#: [id number] NAME: CHARY MLCEOD ROOM: 561 Age: 86 Sex: F Admission Date: 03/30/2017 : 1930 Attending Physician: Stoney Garcia M.D. Primary Care Physician: Gurinder Key M.D. HISTORY AND PHYSICAL CHIEF COMPLAINT Chest pain. HISTORY OF PRESENT ILLNESS The patient is an 86-year-old female with a history of valvular heart disease with severe MR/TR and EF of 40% to 45%, atrial fibrillation, on chronic anticoagulation, and hypertension, who presented to the emergency room with chest pain. The patient stated that her pain is sharp, is lasting a few seconds to minutes, and is intermittent. The patient stated that she also has a history of atrial fibrillation. Patient was concerned about worsening chest pain, and that brought her to the hospital. The patient denies any nausea, vomiting, diaphoresis, or shortness of breath. The patient was also found to have acute kidney injury with a history of chronic kidney disease. The patient is being admitted for the above reasons. PAST MEDICAL HISTORY 1. Gastrointestinal bleed with Coumadin toxicity. 2. Atrial fibrillation. 3. Nonsustained ventricular tachycardia. 4. Chronic kidney disease. 5. Diabetes. 6. Hypertension. 7. Breast cancer, status post mastectomy. 8. Valvular heart disease. PAST SURGICAL HISTORY 1. Mastectomy. 2. Appendectomy. 3. Cataract surgery. 4. Cholecystectomy. 5. Hysterectomy. 6. Hip surgery. ALLERGIES Meperidine, penicillin, caffeine, codeine, propoxyphene, amiodarone, latex, and onion. HOME MEDICATIONS 1. Warfarin. 2. Metoprolol. 3. Lasix. 4. Fenofibrate. 5. Levothyroxine. Unit #: [id number] #: [id number] Patient: CHARY MCLEOD 6. Xanax. 7. Glucophage. 8. Arimidex. SOCIAL HISTORY The patient lives alone. She walks with a cane. There is no tobacco or alcohol use. FAMILY HISTORY Diabetes. REVIEW OF SYSTEMS A 14-point review of systems was performed and only pertinent positive findings are described above. The remaining are negative. PHYSICAL EXAMINATION GENERAL: Patient is lying in bed not in acute distress. VITAL SIGNS: Temperature is 97.8, pulse 86, respiratory rate 16, blood pressure 124/76, and saturating 100% on room air. HEENT: Head atraumatic, normocephalic. Pupils equal, round, and reactive to light and accommodation. Extraocular movements are intact. Dry mucous membranes. NECK: Supple. LUNGS: Decreased air entry at the bases. Positive for rales. HEART: Irregular rate and rhythm. Positive for murmur. ABDOMEN: Soft. Positive bowel sounds. EXTREMITIES: No cyanosis, no clubbing. NEUROLOGIC: Alert, awake, and oriented. No gross focal motor deficit. DIAGNOSTIC STUDIES LABORATORY: Troponin less than 0.05. INR of 2.8 and PT of 31.1. Sodium 138, potassium 4.1, chloride 106, bicarb 23, glucose 82, BUN 34, creatinine 2.2, calcium 9, AST 21, ALT 12, and alkaline phosphatase 57. D-dimer 342. BNP 91. Urinalysis shows 1+ leukocyte esterase and urine WBCs 5-10. WBC 6.1, hemoglobin 10.9, hematocrit 33.1, and platelets 189,000. TSH 2.75. Troponin less than 0.03. CK total 62 and CK-MB percent is 5.3. IMAGING: Chest x-ray shows no active disease. CARDIOLOGY: EKG shows atrial fibrillation with rapid ventricular response of 102 beats per minute. ASSESSMENT 1. Chest pain. 2. Atrial fibrillation. 3. Acute kidney injury on chronic kidney disease. PLAN Admit the patient to observation. Patient will have serial troponins and will consult Cardiology for the chest pain and valvular heart disease. Appreciate Renal consult. Hold the Lasix. Gentle IV fluids. Repeat the labs again in the morning, and further recommendations will follow. Dictated by Moody Oneill/poncho Unit #: [id number] #: [id number] Patient: CHARY MCLEOD TD: 03/30/2017 17:03 JOB #: [id number] HISTORY AND PHYSICAL Page 1 of 1 X STONEY GARCIA MD HISTORY AND PHYSICAL
--- NOTE | ~2017-03-30 | DS ---
Unit #: [id number] #: [id number] Patient: CHARY MCLEOD [id number] [address] [address] [id number] MR#: [id number] NAME: CHARY MCLEOD ROOM: 561 Age: 86 Sex: F Admission Date: 03/30/2017 : 1930 Discharge Date: 03/31/2017 Attending Physician: Crys Desai M.D. Primary Care Physician: Gurinder Key M.D. DISCHARGE SUMMARY REASON FOR ADMISSION Chest pain. HISTORY OF PRESENT ILLNESS/HOSPITAL COURSE Patient is a very pleasant 86-year-old female with a known history of valvular heart disease, severe mitral regurgitation, tricuspid regurgitation, systolic heart failure, atrial fibrillation, chronic anticoagulation, hypertension who presented secondary to chest pain. She was subsequently admitted, placed on telemetry floor and consultation was placed to Dr. Robles and associates for further evaluation. Through hospital course, she underwent routine cardiac enzymes which were otherwise unremarkable. Urinalysis initially was positive; however, final urine culture result did not show any acute bacterial growth. Laboratory studies did yield an INR of 3.1. She is on chronic anticoagulation secondary to aforementioned atrial fibrillation. Her hemoglobin at time of discharge was 10.3 and likely reflects her baseline. After cardiology saw and evaluated the patient, she did undergo 2D echocardiogram. Please see their notes for complete details. No further cardiac workup was recommended and it was felt as though chest pain was likely musculoskeletal in nature as acute coronary syndrome had been ruled out. Therefore, the patient was discharged home in stable condition. FINAL DISCHARGE DIAGNOSES 1. Chest pain, likely musculoskeletal, acute coronary syndrome ruled out. 2. Prior history of gastrointestinal bleed, secondary to Coumadin toxicity. 3. Atrial fibrillation. 4. Chronic anticoagulation with Coumadin. 5. Chronic kidney disease. 6. Severe valvular heart disease. 7. Diabetes. 8. Hypertension. 9. Prior history of breast carcinoma, status post mastectomy. 10. Chronic deconditioning. DISCHARGE MEDICATIONS Discharge medications remain the same and have been reviewed by cardiology services. DIAGNOSTIC STUDIES LABORATORY: Discharge laboratory studies do yield a creatinine of 1.7, GFR of 27 (likely patient's baseline), and as mentioned above patient's Unit #: [id number] #: [id number] Patient: CHARY MCLEOD hemoglobin is approximately 10 at time of discharge. Dictated by... Moody Ying/clementine TD: 04/02/2017 09:16 JOB #: [id number] DISCHARGE SUMMARY Page 1 of 1 X Crys Desai MD X DISCHARGE SUMMARY
[~2017-03-30 01:39] MED LIST changes: +COUMADIN2.5 MG PO; +GLUCOPHAGE500 MG PO; +LEVOTHYROXINE75 MCG PO; +METOPROLOL TAR25 MG PO
[2017-03-30 03:37] LABS: POC - CKMB 2.7 ng/mL (0.0-7.9); POC - TROPONIN <0.05 ng/mL (<=0.05)
[2017-03-30 04:18] LABS: INR 2.8; PARTIAL THROMBOPLASTIN TIME 38.5 SECONDS (23.5-31.3); PROTHROMBIN TIME (PATIENT) 31.1 SECONDS (9.6-11.5)
[2017-03-30 04:23] LABS: ALBUMIN SERUM 4.4 g/dL (3.5-5.0); BILIRUBIN, DIRECT 0.1 mg/dL (0.0-0.2); BILIRUBIN,INDIRECT 0.3 mg/dL (0.0-0.9); BILIRUBIN,TOTAL 0.4 mg/dL (0.2-2.0); BUN/CREATININE RATIO 15.45; CREATININE SERUM 2.2 mg/dL (0.6-1.4); GLOM FILT RATE Estimated 19.8 mL/min (>60); POTASSIUM 4.1 mmol/L (3.5-5.1); PROTEIN TOTAL SERUM 7.6 g/dL (6.0-8.3)
[2017-03-30 06:02] LABS: URINE SOURCE CLEAN CATCH
[2017-03-30 06:18] LABS: POC - CKMB 2.9 ng/mL (0.0-7.9); POC - TROPONIN <0.05 ng/mL (<=0.05)
[2017-03-30 06:27] LABS: URINE APPEARANCE CLEAR; URINE BILIRUBIN NEG (NEG); URINE BLOOD TRACE (NEG); URINE COLOR YELLOW; URINE GLUCOSE NEG (NEG); URINE KETONE NEG (NEG); URINE LEUKOCYTE ESTERASE 1+ (NEG); URINE NITRATE NEG (NEG); URINE PROTEIN TRACE (NEG); URINE SPECIFIC GRAVITY 1.014 (1.003-1.035); URINE UROBILINOGEN 0.2 MG/DL (NEG)
[2017-03-30 06:30] LABS: CULTURE INDICATED? YES; URINE BACTERIA AUWI NEG (NEGATIVE); URINE SQUAMOUS EPITHELIAL CELL FEW /[HPF]
[2017-03-30 07:13] LABS: BASOPHIL# 0.1 X10e3 (0-0.3); BASOPHIL% 1.2 % (0-2.5); EOSINOPHIL# 0.1 X10e3 (0-0.7); EOSINOPHIL% 2.1 % (0.0-7.0); HEMATOCRIT 33.1 % (35.0-45.0); HEMOGLOBIN 10.9 gm/dL (12.0-16.0); LYMPHOCYTE# 1.8 X10e3 (1.0-3.5); LYMPHOCYTE% 29.7 % (17.0-45.0); MEAN CELL VOLUME 94.7 FL (83-96); MEAN CORPUSCULAR HEMOGLOBIN 31.1 PG (28-34); MEAN CORPUSCULAR HGB CONC 32.8 g/dL (30-36); MONOCYTE# 0.9 X10e3 (0-1.0); MONOCYTE% 14.1 % (3.0-12.0); NEUTROPHIL# 3.2 X10e3 (1.5-7.1); NEUTROPHIL% 52.9 % (40-75); PLATELET COUNT 189 X10e3 (140-420); RED BLOOD COUNT 3.49 X10e (3.90-5.30); RED CELL DISTRIBUTION WIDTH 13.7 % (11.0-15.5); WHITE BLOOD COUNT 6.1 X10e3 (4.0-10.5)
[2017-03-30 07:15] LABS: DIFF IND NO
[2017-03-30] MEDS ORDERED: COUMADIN5 MG PO (08:32)
[2017-03-30] MEDS ORDERED: WARFARIN SODIU2.5 M1 PO (08:32)
[2017-03-30] MEDS ORDERED: LASIX PO (08:33)
[2017-03-30] MEDS ORDERED: METOPROLOL TART25 MG PO (08:33)
[2017-03-30] MEDS ORDERED: LEVOTHYROXINE75 MC1 PO (08:34)
[2017-03-30] MEDS ORDERED: FENOFIBRATE54 MG PO (08:34)
[2017-03-30] MEDS ORDERED: ARIMIDEX1 MG PO (08:35)
[2017-03-30] MEDS ORDERED: XANAX1 MG PO (08:35)
[2017-03-30] MEDS ORDERED: GLUCOPHAGE500 MG PO (08:35)
[2017-03-30 13:47] LABS: %MB 5.3 % (0.0-4.0); MB 3.3 ng/ml
[2017-03-30 18:28] LABS: CK TOTAL 54 IU/L (26-140)
[2017-03-31 04:46] LABS: CREATININE,RANDOM URINE 70 mg/dL; POTASSIUM,URINE RANDOM 36 mmol/L; SODIUM URINE RANDOM 116 mmol/L
[2017-03-31 05:44] LABS: HEMOGLOBIN 10.3 gm/dL (12.0-16.0); MEAN CORPUSCULAR HEMOGLOBIN 31.2 PG (28-34); MEAN CORPUSCULAR HGB CONC 33.2 g/dL (30-36); MEAN PLATELET VOLUME 10.3 FL (6.5-11.5); RED BLOOD COUNT 3.3 X10e (3.90-5.30); RED CELL DISTRIBUTION WIDTH 13.8 % (11.0-15.5); WHITE BLOOD COUNT 5.1 X10e3 (4.0-10.5)
[2017-03-31 05:57] LABS: INR 3.1; PROTHROMBIN TIME (PATIENT) 33.5 SECONDS (9.6-11.5)
[2017-03-31 06:41] LABS: BUN/CREATININE RATIO 18.82; CALCIUM SERUM 8.7 mg/dL (8.4-10.2); CREATININE SERUM 1.7 mg/dL (0.6-1.4); MAGNESIUM 2.2 mg/dL (1.6-3.0); POTASSIUM 4.3 mmol/L (3.5-5.1)
[2017-03-31 06:42] LABS: CK TOTAL 45 IU/L (26-140)
[2017-03-31 13:07] LABS: CREATININE,RANDOM URINE 54 mg/dL; POTASSIUM,URINE RANDOM 34 mmol/L; SODIUM URINE RANDOM 143 mmol/L
== END 2017-03-31 16:06 | disposition home or self-care (01) ==
LOC: CED 01:39 → CEDOF 08:30 → CED 09:02 → CEDOF 09:02 → C5B 17:02
PROVIDERS: Emergency Medicine; Internal Medicine; Internal Medicine Cardiovascular Disease; Internal Medicine Nephrology; Student in an Organized Health Care Education/Training Program
DX: R07.89 Other chest pain (principal); I48.91 Unspecified atrial fibrillation; Z79.01 Long term (current) use of anticoagulants; I13.0 Hypertensive heart and chronic kidney disease with heart failure and stage 1 through stage 4 chronic kidney disease, or unspecified chronic kidney disease; E11.22 Type 2 diabetes mellitus with diabetic chronic kidney disease; N18.3 Chronic kidney disease, stage 3 (moderate); I50.22 Chronic systolic (congestive) heart failure; N17.9 Acute kidney failure, unspecified; D63.1 Anemia in chronic kidney disease; Z85.3 Personal history of malignant neoplasm of breast; I08.1 Rheumatic disorders of both mitral and tricuspid valves; Z90.49 Acquired absence of other specified parts of digestive tract; Z90.710 Acquired absence of both cervix and uterus; Z88.5 Allergy status to narcotic agent; Z88.0 Allergy status to penicillin; Z91.040 Latex allergy status
CPT/HCPCS: 36415; 71010; 80048; 80076; 81003; 82436; 82550; 82553; 82570; 82728; 82947; 83540; 83550; 83735; 83880; 84100; 84133; 84300; 84443; 84484; 85025; 85027; 85379; 85610; 85730; 87086; 89190; 93005; 93308; 99285; G0378